=== PATIENT | male | born 1970 | race Caucasian/White ===

== ENCOUNTER 2025-09-22 06:15 | Day surgery (SDC) | payer OTHER ==
[2025-09-22] VITALS (21 sets, daily range): BP systolic 115–146; BP diastolic 68–104
[~2025-09-22] VITALS: Ht 182.9 cm; Wt 117.8 kg
[~2025-09-22 06:15] MED LIST: ALBU90OI INH; BUDESONIDE0.5 MG/2 M INH; CYCL10 PO; CeFAZolin Sodium 2,000 MG in NS 100 ML IV SCH; Chlorhexidine Mouth Care 15 ML UDC MT SCH; LISI10 PO; Maxalt Mlt10 MG PO; OMEP20ER PO; PANT20 PO; Ropivacaine 0.5% HCl/Pf 123.125 MG,EPINEPHrine HCL 0.25 MG,Ketorolac Tromethamine 15 MG... INFIL SCH; TAMS.4ER PO; Tranexamic Acid 100 ML IV SCH; ZYRTEC10 M2 PO
[2025-09-22] MEDS ORDERED: Midazolam HCl 1MG / ML 2ML Vial IV SCH (07:15)
[2025-09-22] MEDS ORDERED: Rocuronium Bromide 10 MG/ML 5ML Injection IV ONE ×2 (07:25→08:50)
[2025-09-22] MEDS ORDERED: FentaNYL Citrate 50 MCG/ML 2 ML Injection ONE ×3 (07:28→10:24)
[2025-09-22] MEDS ORDERED: Rizatriptan Benzoate 10 MG / TAB SoluTab PO PRN (07:50)
[2025-09-22] MEDS ORDERED: Ketamine HCl 100 MG / ML 5ML Vial ONE (07:53)
[2025-09-22] MEDS ORDERED: Phenylephrine HCl 100 MCG/ML-NS 10MLSYR (1MG/10ML) ONE (07:55)
[2025-09-22] MEDS ORDERED: Prochlorperazine Edisylate 10 mg Vial IV PRN (07:55)
[2025-09-22] MEDS ORDERED: Ondansetron HCl 2 MG / ML 2ML Vial ONE (07:59)
[2025-09-22] MEDS ORDERED: Dexamethasone Sod Phos 10 MG/ML 1ML VIAL ONE (07:59)
[2025-09-22] MEDS ORDERED: FLU VACC TS2025-26(6MOS UP)/PF 45 MCG/0.5 ML SYRINGE IM SCH (08:00)
[2025-09-22] MEDS ORDERED: HYDROcodone 5-APAP 325 TAB PO PRN (08:00)
[2025-09-22] MEDS ORDERED: Magnesium Hydroxide Conc 10 ML UDC PO PRN (08:05)
[2025-09-22] MEDS ORDERED: Ondansetron HCl 2 MG / ML 2ML Vial IV PRN ×2 (08:05→08:25)
[2025-09-22] MEDS ORDERED: HYDROmorphone HCl/Pf 1MG SYR IV PRN ×3 (08:05→08:25)
[2025-09-22] MEDS ORDERED: Metoclopramide HCl 5MG / ML 2ML Vial IV PRN (08:10)
--- NOTE | 2025-09-22 08:10 | NUR ---
09/22/25 0810 TITO STEVENSON SCRATCH LIKE MARKINGS PRESENT NEAR GROIN AREA PRIOR TO OR BRING BACK. PROVIDER AWARE.
[2025-09-22] MEDS ORDERED: Albuterol 2.5 MG/3 ML VIAL INH PRN (08:20)
[2025-09-22] MEDS ORDERED: FentaNYL Citrate 50 MCG/ML 2 ML Injection IV PRN ×2 (08:20→08:25)
[2025-09-22] MEDS ORDERED: Albuterol HFA200 ACT/6.7 GM INH INH PRN (08:30)
[2025-09-22] MEDS ORDERED: Budesonide 0.5 MG/2 ML RESP INH PRN (08:30)
[2025-09-22] MEDS ORDERED: HYDROmorphone HCl/Pf 1MG SYR ONE ×3 (08:31→10:24)
[2025-09-22] MEDS ORDERED: Sugammadex Sodium 200 MG/2ML SDV (100 MG/ML) ONE (09:23)
[2025-09-22] MEDS ORDERED: Ketorolac Tromethamine 30mg Vial ONE (10:24)
--- NOTE | 2025-09-22 11:21 | NUR ---
ARRIVAL TO UNIT PT ARRIVED TO UNIT AT APPROX 1100. PT APPEARS A/OX4, TRANSFERRED TO BED FROM [facility]. PT REPORTING PAIN. UTILIZED NON-PHARM INTERVENTIONS (SEE POST OP ASSESSMENT). PT DENIES N/T. DENIES N/V. URINAL IN REACH. CALL LIGHT IN REACH.
[2025-09-22] MEDS ORDERED: Ketorolac Tromethamine 15mg Vial IV SCH (12:00)
[2025-09-22] MEDS ORDERED: ASPI81CH PO (15:29)
[2025-09-22] MEDS ORDERED: CeFAZolin Sodium 2,000 MG in NS 100 ML IV SCH (16:00)
--- NOTE | 2025-09-22 17:09 | NUR ---
SHIFT SUMMARY POD 0 L ROLDAN PT CAME TO FLOOR REPORTING PAIN LEVELS OF 9/10. PAIN MANAGED PER EMAR. PT ALSO GIVEN ADDITIONAL ICE PACKS, REPOSITIONED TO A LEVEL OF COMFORT. PT DENIES N/V. AMBULATING 1XFWW. MANY VERBAL CUES REQUIRED FOR PT WHEN AMBULATING. SURGICAL SITE C/D/I. PT WAS UNABLE TO WORK WITH PHYSICAL THERAPY TODAY DUE TO BEING DROWSY. THERAPY EDUCATED PT . CALL LIGHT IN REACH BED IN LOWEST POSITION.
[2025-09-23 03:03] VITALS: BP 136/80
[2025-09-23 03:54] LABS: BASOPHILS ABSOLUTE AUTO 0.03 K/mm3 (0.00-0.23); BASOPHILS PERCENT AUTO 0 % (0-2); EOSINOPHILS ABSOLUTE AUTO 0.01 K/mm3 (0.00-0.68); EOSINOPHILS PERCENT AUTO 0 % (0-6); Hematocrit 32.0 % (37.0-53.0); Hemoglobin 10.6 g/dL (13.5-17.5); IMMATURE GRAN ABSOLUTE AUTO 0.09 K/mm3 (0.00-0.10); IMMATURE GRAN PERCENT AUTO 1 % (0-1); LYMPHOCYTES ABSOLUTE AUTO 1.89 K/mm3 (0.84-5.20); LYMPHOCYTES PERCENT AUTO 10 % (21-46); MONOCYTES ABSOLUTE AUTO 1.23 K/mm3 (0.16-1.47); MONOCYTES PERCENT AUTO 7 % (4-13); Mean Corpuscular HGB Conc 33.1 g/dL (31.5-36.5); Mean Corpuscular Volume 92 fL (80-100); NEUTROPHILS ABSOLUTE AUTO 15.12 K/mm3 (1.96-9.15); NEUTROPHILS PERCENT AUTO 82 % (41-73); NRBC ABSOLUTE 0.00 K/mm3 (0.00-0.02); NRBC Auto 0.0 /100 WBC (0.0-0.2); Platelet Count 208 K/mm3 (150-400); RDW Coefficient Variation 13.5 % (11.7-14.2); RDW Standard Deviation 45.6 fL (35.1-46.3)
--- NOTE | 2025-09-23 04:06 | NUR ---
SHIFT SUMMARY ELVA WAS ALERT AND FULLY ORIENTED ON ASSESSMENT. PAIN MODERATELY WELL CONTROLLED W/ PO MEDS. SENSATION/ CIRCULATION TO BLE'S INTACT. INSCISION C/D/I. PT DENIES SOB, NAUSEA, CHEST PAIN. PT AMBULATING/ VOIDING APPROPRIATELY. NO ACUTE EVENTS TONIGHT. NO NOTED CHANGES TO PT CONDITION.
[2025-09-23 04:16] LABS: Anion Gap 8.0 mmol/L (3-11); Blood Urea Nitrogen 12.0 mg/dL (8-24); CO2, Blood 25.0 mmol/L (21-32); Calcium, Blood 8.0 mg/dL (8.5-10.1); Chloride, Blood 106.0 mmol/L (98-108); Creatinine, Blood 0.82 mg/dL (0.60-1.20); Glucose, Blood 221.0 mg/dL (70-99); Potassium, Blood 4.0 mmol/L (3.5-5.5); Sodium, Blood 135.0 mmol/L (136-145)
[2025-09-23 07:08] VITALS: BP 126/88
[2025-09-23] MEDS ORDERED: OxyCODONE 10/Acetamin 325 TABLET PO PRN (09:05)
--- NOTE | 2025-09-23 09:25 | NUR ---
PT HAS PAIN 8/10 AFTER GETTING 2 NARCO AND TYLENOL. THERE IS MODERATE SWELLING AT L HIP. PT IS ELEVATING AND ICING LEG. DR. DELONG NOTIFIED, PLAN IS TO GIVE PERCOCET. PT REPORTS TAKING PERCOCET IS OK ONCE -WITH KNOWN ALLERGY, JUST NOT MULTIPLE TIMES.
--- NOTE | 2025-09-23 11:25 | NUR ---
DISCHARGE: PACKET PRINTED AND PT EDUCATED. IV DC'D WNL, TIP INTACT. PT LEFT UNIT VIA WHEELCHAIR WITH MEDICAL ACCOUNTS RECEIVABLE SPECIALISTBraden SPANGLER AND AT 1120
== END 2025-09-23 11:20 | disposition home or self-care (01) ==
LOC: ORSCMMR 06:15 → ORD 07:30 → SURS 11:06 → ORSCMMR 09-23 11:20
PROVIDERS: Orthopaedic Surgery
PROC: 0SRB0JZ Replacement of Left Hip Joint with Synthetic Substitute, Open Approach (ICD-10-PCS; principal; 2025-09-22 07:30)
DX: M16.12 Unilateral primary osteoarthritis, left hip (principal); M25.852 Other specified joint disorders, left hip; I10 Essential (primary) hypertension; J45.909 Unspecified asthma, uncomplicated; K21.9 Gastro-esophageal reflux disease without esophagitis; Z79.899 Other long term (current) drug therapy
CPT/HCPCS: 36415; 72170; 80048; 85025; 97112; 97116; 97161; 97530; A9270; C1776; J0166; J0690; J0735; J1100; J1171; J1885; J2250; J2371; J2405; J2470; J2704; J2795; J3010; J7120